=== PATIENT | female | born 1930 | race Caucasian/White ===

== ENCOUNTER 2016-08-12 11:27 | Outpatient (CLI) | payer MEDICARE, OTHER | END 2016-08-12 11:30 | LOC: CARD 11:27 | PROVIDERS: ATTEND Nurse Practitioner | DX: Z51.81 Encounter for therapeutic drug level monitoring (principal); Z79.01 Long term (current) use of anticoagulants; I48.0 Paroxysmal atrial fibrillation | CPT/HCPCS: G0463 ==

== ENCOUNTER 2016-08-12 12:23 | Outpatient (CLI) | payer MEDICARE ==
[2016-08-12 12:55] LABS: BASOPHILS % 0.7 (0.0-1.5); EOSINOPHILS % 0.8 % (0.0-6.8); MEAN CORPUSCULAR HEMOGLOBIN 35.3 pg (28.0-34.0); MEAN CORPUSCULAR VOLUME 99.6 fl (80.0-100.0); MONOCYTES % 6.3 % (0.0-11.0); NEUTROPHILS # 3.1 # k/uL (1.4-7.7)
[2016-08-12 13:08] LABS: eGFR (African) > 60; eGFR (Non-African) > 60
== END 2016-08-12 12:24 ==
LOC: LAB 12:23
PROVIDERS: ATTEND Internal Medicine Cardiovascular Disease
DX: Z51.81 Encounter for therapeutic drug level monitoring (principal); Z79.01 Long term (current) use of anticoagulants; I48.0 Paroxysmal atrial fibrillation; Z82.49 Family history of ischemic heart disease and other diseases of the circulatory system
CPT/HCPCS: 36415; 80053; 84443; 85025; 85610

== ENCOUNTER 2017-01-20 17:25 | Emergency (ER) | payer MEDICARE, OTHER ==
--- NOTE | 2017-01-20 17:36 | ED Physician Documentation ---
General Adult - HISTORIAN Historian: patient - HPI Stated Complaint: right lower leg pain Chief Complaint: Lower Extremity Problem Onset: other (2 weeks ) Timing: still present Severity: moderate Modifying Factors: elevating her foot is improved pain Further Comments: no Last known Well Date: 01/04/17 Last Known Well Time: 18:00 Last known Well Code/Unknown Code: Unknown - ROS CONST: no problems EYES/ENT: none CVS/RESP: none GI/: none MS/SKIN/LYMPH: other (bruise on both lower legs ) - PAST HX Past History: other (Afib ) Other History: other (Mastectomy 1976 Right ) Immunizations: referred to PCP Allergies/Adverse Reactions: Allergies Allergy/AdvReac Type Severity Reaction Status Date / Time No Known Allergies Allergy Unverified 01/20/17 17:38 Home Medications: Ambulatory Orders Medication Instructions Recorded "Heart Med" 01/20/17 Warfarin Sodium [Coumadin] 01/20/17 - SOCIAL HX Smoking History: non-smoker Alcohol Use: none Drug Use: none - FAMILY HX Family History: No - REVIEWED ASSESSMENTS Nursing Assessment Reviewed: Yes Vitals Reviewed: Yes ED Results Lab/Radiology - Radiology Radiology Impressions: HISTORY: 86 year-old female with right lower leg pain after fall 2 weeks ago. COMPARISON: None available. TECHNIQUE: AP and lateral views of the right tibia and fibula were performed. FINDINGS: No acute fracture or other osseous abnormality are identified about the right tibia and fibula. The bones are diffusely osteopenic. There are extensive vascular calcifications throughout the superficial soft tissues. There is soft tissue prominence anterior to the proximal tibia. IMPRESSION: 1. Osteopenia without evidence of acute fracture of the right tibia or fibula. 2. Probable hematoma versus soft tissue contusion anterior to the proximal tibia. 3. Extensive vascular calcifications throughout the right lower leg. Electronically signed on Jan 20, 2017 6:17:33 PM CDT by: [facility] Adult Physical Exam - PHYSICAL EXAM GENERAL APPEARANCE: no distress EENT: eye inspection normal NECK: normal inspection RESPIRATORY: no resp distress, chest non-tender, breath sounds normal CVS: reg rate & rhythm, heart sounds normal, equal pulses, no murmur, irregularly irregular rhy ABDOMEN: soft, no organomegaly, normal bowel sounds BACK: normal inspection SKIN: other (right lower leg with approx 4 cm raised hematoma ) EXTREMITIES: non-tender NEURO: oriented X3, CN's nml as tested, motor nml Discharge Clincal Impression: Hematoma Referrals: Fiorella Chun MD [Primary Care Provider] - 2 Days Additional Instructions: Take Tyelnol PRN - as discussed Keep AYSE bandage on as directed See PCP DO NOT PICK at the area Condition: Stable Disposition: 01 HOME, SELF-CARE Decision to Admit: NO Date of Decison to Admit: 01/20/17 Decision Time: 19:07
[2017-01-20 17:54] LABS: BASOPHILS % 0.6 (0.0-1.5); EOSINOPHILS % 0.7 % (0.0-6.8); MEAN CORPUSCULAR HEMOGLOBIN 31.5 pg (28.0-34.0); MEAN CORPUSCULAR VOLUME 96.4 fl (80.0-100.0); MONOCYTES % 5.9 % (0.0-11.0)
[2017-01-20 18:15] LABS: eGFR (African) > 60; eGFR (Non-African) > 60
--- NOTE | 2017-01-20 18:55 | Diagnostic Imaging Report ---
KRISTY VASQUEZ [facility] [id number] [facility] [address] [place], [place]. [address] Report Submission Date: Jan 20, 2017 6:17:33 PM CDT Patient Study Name: ÁNGEL HERNANDEZ Date: Jan 20, 2017 5:43:19 PM CDT Modality Type: CR Gender: F Description: LOWER EXTREMITY : 30 Institution: [facility] Physician: KRISTY VASQUEZ HISTORY: 86 year-old female with right lower leg pain after fall 2 weeks ago. COMPARISON: None available. TECHNIQUE: AP and lateral views of the right tibia and fibula were performed. FINDINGS: No acute fracture or other osseous abnormality are identified about the right tibia and fibula. The bones are diffusely osteopenic. There are extensive vascular calcifications throughout the superficial soft tissues. There is soft tissue prominence anterior to the proximal tibia. IMPRESSION: 1. Osteopenia without evidence of acute fracture of the right tibia or fibula. 2. Probable hematoma versus soft tissue contusion anterior to the proximal tibia. 3. Extensive vascular calcifications throughout the right lower leg. Electronically signed on Jan 20, 2017 6:17:33 PM CDT by: Alcon GOODEN
[2017-01-20 19:57] VITALS: BP 154/98
== END 2017-01-20 19:45 | disposition home or self-care (01) ==
LOC: ED 17:25
DX: S80.11XA Contusion of right lower leg, initial encounter (principal); W19.XXXA Unspecified fall, initial encounter; Y93.9 Activity, unspecified; Y99.9 Unspecified external cause status
CPT/HCPCS: 36415; 73590; 80053; 85025; 85610; 99283

== ENCOUNTER 2017-09-07 15:33 | Outpatient (CLI) | payer MEDICARE, OTHER | END 2017-09-07 15:35 | LOC: LAB 15:33 | PROVIDERS: ATTEND Internal Medicine Cardiovascular Disease | DX: Z79.01 Long term (current) use of anticoagulants (principal) | CPT/HCPCS: 36415; 85610 ==